=== PATIENT | male | born 1980 | race African-American/Black ===

== ENCOUNTER 2022-04-29 11:04 | Emergency (ER) | payer OTHER, SELFPAY ==
--- NOTE | 2022-04-29 11:15 | DI.RAD_ITS ---
Exam(s) XR FOREARM LT EXAM: XR FOREARM LT CLINICAL HISTORY: nailgun to arm. TECHNIQUE: 2D digital imaging was performed. COMPARISON: No exams were available for comparison FINDINGS: Two views There is a penetrating nail through the mid aspect of both the radius and ulna. Enters on the ulnar side. No fractures evident. IMPRESSION: The nail appears to be imbedded within the radius and ulna. No fractures evident. DATA REPOSITORY: RADIATION DOSE DELIVERED:
[2022-04-29 11:20] VITALS: BP 170/88; PULSE 75; RESP 20; TEMP 36.8; O2SAT 99
--- NOTE | 2022-04-29 12:16 | ED.GENADUL_ITS ---
Discharge Plan Disposition Patient Disposition: HOME Condition: Improving Discharge Details Clinical Impression: Acute foreign body of forearm Primary Care Provider: None,None ED Provider: Minh Carroll Home Meds and New Rx's Prescriptions: Continued amlodipine 5 mg Tablet lisinopril 5 mg Tablet fluoxetine 60 mg Tablet 60 mg PO DAILY Discharge Instructions Instructions: Puncture Wound (ED) Additional Instructions: Nail removed without difficulty. Rest, elevate, cool and/or warm compresses every 2 hours for 20 minutes. [id number] Tylenol and/or Motrin as directed for discomfort. Change antibiotic dressing daily. Please watch for new or worsening symptoms and return to the ER for any concerns. Please contact your primary care provider to discuss your ER visit need for outpatient reevaluation Medical Decision Making 42-year-old gentleman, tetanus status up-to-date, [id number], presents for an embedded nail from a nail gun his left forearm. Neuro, vascular, tendon intact. Plan is to obtain x-ray of his left forearm and obtain IV access X-ray reveals the nail appears to be embedded within the radius and ulna. No fractures evident Case discussed with Dr. Bryant, orthopedics. He personally came to the ER to evaluate patient and removed the foreign body. Please see his note. He recom mends 2 g IV Ancef, no additional oral antibiotics, no outpatient follow-up required. Wound was properly cleaned and dressed. This plan discussed with patient who has no additional questions or concerns. Standard discharge and return precautions were provided. Patient understands, is agreeable to this plan, and has no additional questions or concerns upon discharge. This documentation was generated using [employer] dictation system, please disregard any oddities of phrase or misspellings. Imaging Data Radiologic Study: Attestation: I personally reviewed and interpreted this imaging study as follows: Imaging: X-Ray Radiologist's impression: Exam(s) XR FOREARM LT EXAM: XR FOREARM LT CLINICAL HISTORY: nailgun to arm. TECHNIQUE: 2D digital imaging was performed. COMPARISON: No exams were available for comparison FINDINGS: Two views There is a penetrating nail through the mid aspect of both the radius and ulna. Enters on the ulnar side. No fractures evident. IMPRESSION: The nail appears to be imbedded within the radius and ulna. No fractures evident. HPI General Mode of arrival: ambulatory . Date/Time Provider Initiated Documentation: 04/29/22 11:23 . Limitations to Documentation: no limitations . Information obtained by: patient . History of Present Illness 42 year old M presents to the emergency department with the chief complaint of L arm pain/FB, described as moderate, with intensity rated at 5. Quality is described as aching, and is localized to the left and upper extremity. Patient reports no radiation. Patient started experiencing this minute(s) (30) and it has been constant. Immobilization improves symptom(s), Movement worsens symptoms . Patient notes other (Tingling). Patient did receive the following treatments prior to arrival, none Related Data Home Medications Medication Instructions Recorded Confirmed amlodipine 5 mg tablet mg 04/29/22 fluoxetine 60 mg tablet 60 mg PO DAILY 04/29/22 04/29/22 lisinopril 5 mg tablet mg 04/29/22 Allergies Allergy/AdvReac Type Severity Reaction Status Date / Time No Known Allergies Allergy Unverified 04/29/22 12:18 General Stated Complaint: Laceration JUDI: 3 Review of Systems Constitutional Constitutional: Denies fever(s) and Denies weakness Musculoskeletal Musculoskeletal: Denies deformity, Denies arthralgias, Denies numbness, Denies stiffness and Reports tingling Integumentary/Breasts Skin/Breast: Denies erythema Neurologic Neurologic: Denies numbness, Reports tingling and Denies weakness PFSH All Active Problems (Updated 04/29/22 @ 14:05 by Ryne Bryant MD) Foreign body in left forearm (Acute) Medical History (Updated 04/29/22 @ 14:05 by Ryne Bryant MD) Hypertension PTSD (post-traumatic stress disorder) Social History Smoking/Tobacco Use Status: Current every day Tobacco Type: cigarettes Smoking risk assessment performed?: Yes Alcohol Intake: former Substance use type: does not use Do you feel safe at home: Yes Do you feel safe in your relationship?: Yes Exam Const General: cooperative, healthy appearing, comfortable and no acute distress Orientation: alert and awake [facility] Head: normal to inspection, normocephalic and atraumatic Eyes Conjunctivae: conjunctivae normal Neck Neck: normal visual inspection, full ROM, trachea midline and supple Resp Effort & Inspection: normal respiratory effort and able to speak in complete s entences Cardio Rate: regular rate Rhythm: regular rhythm Skin General skin exam: no rashes or lesions noted Neuro General: patient alert, patient awake, moves all extremities and no focal motor deficits Cognition: normal cognition Speech: speech normal Gait: normal gait Motor: muscle tone normal throughout Sensory Exam: no sensory deficits noted Extrem General: full ROM and capillary refill normal Elbow/forearm/wrist images: 1. Patient with a nail foreign body embedded in his forearm. Diffuse tenderness. No active bleeding. Neuro, vascular, tendon intact. Psych Appearance: grossly normal Mental Status: mental status grossly normal Course Vital Signs Vital signs: Vital Signs Temperature 36.8 C 04/29/22 11:20 Pulse 75 04/29/22 11:20 Respiratory Rate 20 04/29/22 11:20 Blood Pressure 170/88 H 04/29/22 11:20 Pulse Oximetry 99 04/29/22 11:20 Temperature 36.8 C 04/29/22 11:20 Temperature Source Temporal Artery Scan 04/29/22 11:20 Pulse 75 04/29/22 11:20 Respiratory Rate 20 04/29/22 11:20 Blood Pressure 170/88 H 04/29/22 11:20 Blood Pressure Position Sitting 04/29/22 11:20 Pulse Oximetry 99 04/29/22 11:20 Oxygen Delivery Method Room Air 04/29/22 11:20 Oxygen Flow Rate 0 04/29/22 11:20
[2022-04-29 12:45] VITALS: PULSE 79; RESP 17; O2SAT 100
[2022-04-29 12:53] VITALS: PULSE 77; RESP 15; O2SAT 100
[2022-04-29 13:00] VITALS: PULSE 82; RESP 20; O2SAT 100
[2022-04-29] MEDS: ceFAZolin 2,000 MG in Normal Saline 100 ML 200 MG IVPB (13:17)
--- NOTE | 2022-04-29 13:17 | RESPIRATORY ---
RT called to ER Rm 2 for conscious sedation for male who shot himself in left forearm with nail gun. Patient tolerated procedure very well while wearing 2L NC with SpO2 100%, HR ranging from 77-82, RR 15-20, and CO2 36-40. Suction and Ambu Bag was set-up along with patient place on 2L NC prior to procedure. Patient was talking through the whole nail extraction, RT no longer needed as SpO2 was 100% and he was stable.
--- NOTE | 2022-04-29 13:55 | W.ORTHOCONSU ---
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 He was placing in a window frame when the framing nail or slipped and penetrated his left forearm. It entered from the ulnar aspect of the midportion of the left forearm and embedded itself in the middle of the forearm. He presented to the emergency department with this injury. He denies numbness or tingling. He has significant pain with attempted motion of the arm, motion of the fingers, or manipulation of the nail. He reports having PTSD and hypertension. However, no other major medical issues. He is left-hand dominant. Consults Consult date: 04/29/22 Requesting physician: Minh Carroll Consult Reason Framing nail and left forearm Assessment and Plan Assessment and plan (1) Foreign body in left forearm: Status: Acute Assessment and plan: Mega is a 42-year-old who embedded a framing nail into his left forearm through the radius and ulna. After anesthetizing the track of the nail with a large volume field block of both the radius and the ulna, I was able to remove the nail without significant discomfort and with little difficulty. I did have to make a very small relaxing incision in the skin and use some force to pull the nail out with the brads which were present. He tolerated this well and the nail came out 1 piece with all of the brads attached. He did have some numbness over the dorsum of the hand with some limited extension of the index finger, likely related to the large field block which was administered. No significant bleeding from the wounds. I will give them a call tomorrow to check on the status of his finger as I expect it to be better after the numbing medication wears off. He should receive a dose of Ancef here in the ED and then 48 hours of antibiotics. He will need no further follow-up assuming his function returns fully. Review of Systems All systems reviewed & are unremarkable except as noted in HPI and below PFSH All Active Problems (Updated 04/29/22 @ 14:05 by Ryne Bryant MD) Foreign body in left forearm (Acute) Medical History (Updated 04/29/22 @ 14:05 by Ryne Bryant MD) Hypertension PTSD (post-traumatic stress disorder) Social History Smoking/Tobacco Use Status: Current every day Tobacco Type: cigarettes Smoking risk assessment performed?: Yes Alcohol Intake: former Substance use type: does not use Do you feel safe at home: Yes Do you feel safe in your relationship?: Yes Exam Narrative Exam Narrative: Sitting up in the chair. No acute distress. Alert and orient x3. Evaluation of the left arm shows an obvious framing nail exposed over the ulnar aspect of the left forearm. It is roughly in the mid forearm position almost directly in the mid coronal plane traveling slightly distal to proximal. There is no gross contamination. There is no active bleeding. He endorses full sensation over the median, radial, ulnar nerve. Any manipulation of the wrist and fingers is somewhat challenging due to some pain. There is pain with manipulation of the nail itself. Palpable radial pulse. Results Last Vital Signs Temp 36.8 C 04/29/22 11:20 Pulse 82 04/29/22 13:00 Resp 20 04/29/22 13:00 BP 170/88 H 04/29/22 11:20 Pulse Ox 100 04/29/22 13:00 Procedures Foreign Body Removal Time out performed: yes Site: left (Forearm) Description of foreign body: other (Framing nail) Sedation/Analgesia: none and other (A large high-volume field block was administered along the track of the nail and the periosteum of the ulna and the radius. This was 30 cc of a one-to-one mixture of 0.5% bupivacaine and 1% lidocaine.) Technique: manual removal and incision made to facilitate removal Confirmed by: direct visualization Complications: none Post-procedure exam: awake, alert and normal BP Neurovascular: other (There was some noted numbness over the radial distribution including decreased function of EIP and EPL, likely related to the large field block of this area.)
[2022-04-29 14:04] VITALS: BP 152/110; PULSE 94; RESP 18; O2SAT 98
--- NOTE | 2022-04-29 14:19 | NUR.NOTE ---
Nursing Note: no procedural sedation done.
== END 2022-04-29 14:20 | disposition home or self-care (01) ==
PROVIDERS: Emergency Provider Physician Assistant
DX: S50.852A Superficial foreign body of left forearm, initial encounter (principal); W45.0XXA Nail entering through skin, initial encounter
CPT/HCPCS: 10120; 96365; 96375; 99284; 73090; J0690